=== PATIENT | male | born 1980 | race Two or more races ===

== ENCOUNTER 2019-04-14 21:56 | Emergency (ER) | payer MEDICAID ==
[~2019-04-14] VITALS: Ht 167.6 cm; Wt 89.4 kg
[2019-04-14] MEDS ORDERED: IBUPROFEN600 MG PO (23:15)
== END 2019-04-14 23:39 | disposition home or self-care (01) ==
LOC: ED 21:56
DX: S30.0XXA Contusion of lower back and pelvis, initial encounter (principal); W01.0XXA Fall on same level from slipping, tripping and stumbling without subsequent striking against object, initial encounter
CPT/HCPCS: 72220; 99283